=== PATIENT | female | born 1975 | race Caucasian/White ===

== ENCOUNTER 2023-10-15 10:12 | Outpatient (CLI) | payer BC, SELFPAY ==
--- NOTE | ~2023-10-15 | MM_ITS ---
EXAMINATION: MM screening renard BI w linn HISTORY: Screening mammogram TECHNIQUE: Craniocaudal and mediolateral oblique 3-D tomosynthesis images were obtained and synthetic 2-D images were generated. CAD analysis was submitted and interpreted. COMPARISON: No prior mammogram is available for comparison at this institution. BREAST PARENCHYMAL COMPOSITION: The breasts are heterogeneously dense, which may obscure small masses . FINDINGS: There is no evidence of suspicious mass, calcification, or architectural distortion to sugg est malignancy in either breast. There has been no suspicious interval change. IMPRESSION: 1. No mammographic evidence of malignancy. 2. Recommend routine screening mammography in one year. BI-RADS Category 1: Negative Reviewed, dictated and finalized at location A.
== END 2023-10-15 10:13 ==
PROVIDERS: PCP Nurse Practitioner Obstetrics & Gynecology; Visit Provider Nurse Practitioner Obstetrics & Gynecology
DX: Z12.31 Encounter for screening mammogram for malignant neoplasm of breast (principal)
CPT/HCPCS: 77063; 77067

== ENCOUNTER 2023-10-31 10:25 | Emergency (ER) | payer BC, SELFPAY ==
[2023-10-31 10:32] VITALS: BP 114/44; PULSE 76; RESP 18; TEMP 36.6; O2SAT 99
--- NOTE | 2023-10-31 10:33 | ED.BACK ---
HPI - Back Pain/Injury General Chief Complaint: Back Pain/Injury Stated Complaint: back pain Time Seen by Provider: 10/31/23 10:33 Source: patient and family Mode of arrival: ambulatory Limitations: no limitations History of Present Illness HPI Narrative: 48 years old white female came from home by private car with left lower back pain started 5 days ago immediately after bending over to left a pine of the floor. Pain shooting down to the knee level. Worse with standing and walking, better lying down.. Patient denies other injuries. Patient is telling me that what seen by a chiropractor 2 days ago, received anti-inflammatory injection at that area without improvement. Related Data Allergies Allergy/AdvReac Type Severity Reaction Status Date / Time No Known Allergies Allergy Unknown Verified 10/31/23 10:26 Review of Systems Review of Systems: All systems reviewed & are unremarkable except as noted in HPI and below Exam Narrative: General appearance: Well-developed, well-nourished Skin: Normal color Head: Normocephalic, nontraumatic Eyes: Clear conjunctiva ENT: Oropharynx normal, ears normal, nose normal Neck: Supple, nontender Chest and respiratory: Airway patent, no respiratory distress, no accessory muscle use Heart: Regular rate/rhythm Abdomen: Soft, nontender, no organomegaly, quiet bowel sounds Vascular: Normal peripheral pulses, normal capillary refill. 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, no gross motor deficit Course Vital Signs Vital signs: Vital Signs Temperature 36.6 C 10/31/23 10:32 Pulse Rate 76 10/31/23 10:32 Respiratory Rate 18 10/31/23 10:32 Blood Pressure 114/44 L 10/31/23 10:32 Pulse Oximetry 99 10/31/23 10:32 Oxygen Delivery Room Air 10/31/23 10:32 Temperature 36.6 C 10/31/23 10:32 Pulse Rate 76 10/31/23 10:32 Respiratory Rate 18 10/31/23 10:32 Blood Pressure 114/44 L 10/31/23 10:32 Pulse Oximetry 99 10/31/23 10:32 Oxygen Delivery Room Air 10/31/23 10:32 MDM - Back Pain/Injury MDM Narrative Medical decision making narrative: Differential diagnosis or back muscular strain/sprain, sciatica. No imaging or labs are required at this time, the ED patient received 1 mg of Dilaudid IM, 4 mg of Zofran p.o., 600 mg of ibuprofen p.o.. Discharge on Medrol Dosepak and naproxen to follow-up with Dr. Méndez,family physician for further evaluation. Differential Diagnosis Differential diagnosis: Likely other (As above) Critical Care Time Critical Care Time Critical Care Time: No Discharge Plan Discharge Clinical Impression: Strain of lumbar region, Lumbar radiculopathy Patient Disposition: Home, Self-Care Condition: Stable Instructions: Acute Low Back Pain (ED), Lumbar Radiculopathy (ED), Lower Back Exercises (ED) Additional Instructions: Return if symptoms are worsening , call DR MÉNDEZ, family physician for appointment, take Tylenol as as needed for aches and pain, continue home medications. Prescriptions: New methylprednisolone [Medrol (Balne)] 4 mg tablets,dose pack See Rx Instructions PO .COMPLEX Qty: 21 0RF Rx Instructions: orally per package directions naproxen [Naprosyn] 500 mg tablet 500 mg PO BID PRN (Reason: pain) Qty: 14 0RF cyclobenzaprine 10 mg tablet 10 mg PO TID PRN (Reason: muscle spasm) Qty: 20 0RF Follow-up/Referrals: Jodi,Harriet Mercedes NP [Primary Care Provider] - Severiano Méndez M.D. [Physician] - 11/04/23
[2023-10-31] MEDS: HYDROmorphone HCL INJ (*CRX) 1 MG/ML SYR IM (11:10)
[2023-10-31] MEDS: IBUPROFEN 600 MG TABLET PO (11:10)
[2023-10-31] MEDS: ONDANSETRON HCL ODT 4 MG TABLET PO (11:10)
== END 2023-10-31 11:37 | disposition home or self-care (01) ==
PROVIDERS: Emergency Provider Emergency Medicine; PCP Nurse Practitioner Obstetrics & Gynecology
DX: S39.012A Strain of muscle, fascia and tendon of lower back, initial encounter (principal); M54.16 Radiculopathy, lumbar region; T14.90XA Injury, unspecified, initial encounter
CPT/HCPCS: 96372; 99283; A9270; J1170

== ENCOUNTER 2025-02-21 11:20 | Outpatient (CLI) | payer BC, SELFPAY ==
--- NOTE | ~2025-02-21 | MM_ITS ---
EXAMINATION: MM screening renard BI w linn HISTORY: Screening TECHNIQUE: Craniocaudal and mediolateral oblique 3-D tomosynthesis images were obtained and synthetic 2-D images were generated. CAD analysis was submitted and interpreted. COMPARISON: 10/15/2023. BREAST PARENCHYMAL COMPOSITION: The breasts are heterogeneously dense, which may obscure small masses . FINDINGS: There is no evidence of suspicious mass, calcification, or architectural distortion to sug gest malignancy in either breast. IMPRESSION: 1. No mammographic evidence of malignancy. 2. Recommend routine screening mammography in one year. BI-RADS Category 1: Negative Reviewed, dictated and finalized at location B.
== END 2025-02-21 11:21 | disposition home or self-care (01) ==
LOC: MICIMG 11:21
PROVIDERS: PCP Nurse Practitioner Family; Visit Provider Obstetrics & Gynecology
DX: Z12.31 Encounter for screening mammogram for malignant neoplasm of breast (principal)
CPT/HCPCS: 77063; 77067